=== PATIENT | male | born 1980 | race Caucasian/White ===

== ENCOUNTER → 2017-08-16 08:27 | Outpatient (CLI) | payer OTHER ==
[2017-08-16 09:03] LABS: UDS - AMPHET NEGATIVE QUAL (NEGATIVE); UDS - BARB NEGATIVE QUAL (NEGATIVE); UDS - BENZO NEGATIVE QUAL (NEGATIVE); UDS - COCAINE NEGATIVE QUAL (NEGATIVE); UDS - OPIATE NEGATIVE QUAL (NEGATIVE); UDS - PCP NEGATIVE QUAL (NEGATIVE); UDS - THC NEGATIVE QUAL (NEGATIVE)
== END | disposition home or self-care (01) ==
LOC: D.LAB 08:27
PROVIDERS: Emergency Medicine
DX: F11.20 Opioid dependence, uncomplicated (principal)

== ENCOUNTER → 2017-10-23 08:56 | Outpatient (CLI) | payer OTHER ==
[2017-10-23 09:26] LABS: UDS - AMPHET NEGATIVE QUAL (NEGATIVE); UDS - BARB NEGATIVE QUAL (NEGATIVE); UDS - BENZO NEGATIVE QUAL (NEGATIVE); UDS - COCAINE NEGATIVE QUAL (NEGATIVE); UDS - OPIATE NEGATIVE QUAL (NEGATIVE); UDS - PCP NEGATIVE QUAL (NEGATIVE); UDS - THC NEGATIVE QUAL (NEGATIVE)
== END | disposition home or self-care (01) ==
LOC: D.LAB 08:56
PROVIDERS: Emergency Medicine
DX: F11.20 Opioid dependence, uncomplicated (principal)

== ENCOUNTER 2018-04-20 18:54 | Emergency (ER) | payer OTHER ==
[~2018-04-20] VITALS: Ht 175.3 cm; Wt 79.5 kg
[2018-04-20 18:59] VITALS: Ht 175.3 cm; Wt 79.5 kg
[2018-04-20] MEDS ORDERED: ZOFRAN8 MG PO (20:46)
[2018-04-20] MEDS ORDERED: BUTALB-APAP-CA1 EACH PO (20:46)
[2018-04-20 21:10] VITALS: BP 150/99
== END 2018-04-20 21:22 | disposition home or self-care (01) ==
LOC: D.ER 18:54
DX: R51 Headache (principal); F17.200 Nicotine dependence, unspecified, uncomplicated

== ENCOUNTER 2018-04-25 02:09 | Emergency (ER) | payer OTHER ==
[~2018-04-25] VITALS: Ht 175.3 cm; Wt 75.0 kg
[~2018-04-25 02:09] MED LIST: BUTALB-APAP-CA1 EACH PO; ZOFRAN8 MG PO
[2018-04-25 02:18] VITALS: Ht 175.3 cm; Wt 75.0 kg
[2018-04-25] MEDS ORDERED: BUTALB-APAP-CA1 EACH PO (05:02)
[2018-04-25] MEDS ORDERED: ZOFRAN ODT4 MG/UDTAB PO ×2 (05:05)
[2018-04-25 05:34] VITALS: BP 130/72
== END 2018-04-25 05:35 | disposition home or self-care (01) ==
LOC: D.ER 02:09
DX: R51 Headache (principal); F17.200 Nicotine dependence, unspecified, uncomplicated

== ENCOUNTER 2018-05-18 19:55 | Emergency (ER) | payer OTHER ==
[~2018-05-18] VITALS: Ht 175.3 cm; Wt 79.4 kg
[~2018-05-18 19:55] MED LIST changes: +ZOFRAN ODT4 MG/UDTAB PO
[2018-05-18 20:02] VITALS: Ht 175.3 cm; Wt 79.4 kg
[2018-05-18] MEDS ORDERED: COMPAZINE10 MG PO (23:31)
[2018-05-18] MEDS ORDERED: TYLENOL W/CODEI1 TAB PO (23:31)
[2018-05-18 23:58] VITALS: BP 132/85
== END 2018-05-18 23:58 | disposition home or self-care (01) ==
LOC: D.ER 19:55
DX: G43.909 Migraine, unspecified, not intractable, without status migrainosus (principal); F17.200 Nicotine dependence, unspecified, uncomplicated

== ENCOUNTER 2018-06-28 06:55 | Emergency (ER) | payer OTHER ==
[~2018-06-28] VITALS: Ht 175.3 cm; Wt 81.8 kg
[~2018-06-28 06:55] MED LIST changes: +COMPAZINE10 MG PO; +TYLENOL W/CODEI1 TAB PO
[2018-06-28 07:00] VITALS: BP 128/81; Ht 175.3 cm; Wt 81.8 kg
[2018-06-28] MEDS ORDERED: FIORICET-COD 51 EACH PO (07:15)
[2018-06-28] MEDS ORDERED: IMITREX NS (07:15)
== END 2018-06-28 07:33 | disposition home or self-care (01) ==
LOC: D.ER 06:55
DX: R51 Headache (principal)

== ENCOUNTER → 2020-06-02 12:30 | Outpatient (CLI) | payer OTHER ==
[2018-06-28 07:00] VITALS: BMI 26.6
[~2020-06-02 12:30] MED LIST changes: +FIORICET-COD 51 EACH PO; +IMITREX NS
== END | disposition home or self-care (01) ==
LOC: D.US 10:30
PROVIDERS: ATTEND Surgery
DX: R10.31 Right lower quadrant pain (principal)

== ENCOUNTER 2020-06-10 08:30 | Day surgery (SDC) | payer OTHER ==
[2020-06-09 15:30] LABS: BASOPHILS 0.4 % (0-2); EOSINOPHILS 6.1 % (0-7); HEMATOCRIT 48.5 % (42.0-54.0); HEMOGLOBIN 16.4 g/dL (13.5-17.5); IMMATURE GRANULOCYTES 0.4 % (0-5); LYMPHOCYTES 31.5 % (15-50); MCH 32.8 pg (26.0-34.0); MCHC 33.8 g/dL (31.0-37.0); MEAN PLATELET VOLUME 9.1 fL (7.4-10.4); MONOCYTES 8.4 % (2-11); NEUTROPHILS 53.2 % (40-80); PLATELET COUNT 223 10x3/uL (130-400); RDW 12.4 % (11.5-14.5); WBC 9.3 10x3/uL (4.8-10.8)
[2020-06-09 15:54] LABS: ANION GAP 7.8 mmol/L (8-16); CALCIUM 9.8 mg/dL (8.5-10.1); CARBON DIOXIDE 31.2 mmol/L (21.0-32.0); CREATININE - SERUM 1.3 mg/dL (0.6-1.3)
[~2020-06-10] VITALS: Ht 175.3 cm; Wt 81.2 kg
--- NOTE | ~2020-06-10 | OP ---
PATIENT NAME: MINA QUINONES MEDICAL RECORD: [id number] :84 LOCATION:D.OPS ADMISSION DATE: SURGEON: TAPAN HOOKS MD DATE OF OPERATION: 06/10/2020 PREOPERATIVE DIAGNOSES: 1. Right inguinal hernia. 2. Hyperlipidemia. 3. Bipolar disorder. 4. Tobacco dependence syndrome. POSTOPERATIVE DIAGNOSES: 1. Right inguinal hernia. 2. Hyperlipidemia. 3. Bipolar disorder. 4. Tobacco dependence syndrome. PROCEDURE: Right inguinal hernia repair with medium PHS mesh. SURGEON: Tapan Hooks MD REPORT OF PROCEDURE: The patient's right groin was prepped and draped in sterile fashion. An oblique incision was made above the inguinal ligament. Electrocautery was used to dissect through the subcutaneous tissue down to the external oblique fascia. This fascia was opened up to the external ring using electrocautery. We elevated the spermatic cord and a Brian was placed around it. The patient had a small cord lipoma and this was high ligated with 3-0 silk tie. We see there was some laxity to the floor of the inguinal canal consistent with an early direct hernia defect. We opened up this inguinal floor and opened the preperitoneal space of Retzius in all directions. A medium PHS mesh was inserted and sutured down on all sides using multiple interrupted 0 Vicryls. The wound was then irrigated out with normal saline, inspected the area and never saw any evidence of an ilioinguinal nerve. The external oblique fascia was then closed with running 2-0 Vicryl, Ayad's was closed with interrupted 3-0 Vicryl and the skin was closed with running subcutaneous 5-0 Monocryl. A 10 mL of 0.25% Marcaine with epinephrine was infused into the surrounding tissues and the wound was dressed appropriately. COMPLICATIONS: None. CONDITION: Stable. ANESTHESIA: General endotracheal and local. BLOOD LOSS: Minimal. TRANSINT:[id number] Voice Confirmation ID: [id number] DOCUMENT ID: [id number] OPERATIVE REPORT [id number] MINA QUINONES CHRISTIAN MD CC: MARIAM CARLIN DO [id number] DICTATION DATE: 06/10/20 1201 PROCESS EQUIPMENT OPERATOR: 06/10/201930 [facility] 06/10/20 [id number] [place] [address]
[~2020-06-10 08:30] MED LIST changes: +REMERON15 MG PO; +SEROQUEL100 MG PO; +XANAX1 MG PO
[2020-06-10 10:44] VITALS: BP 115/70; Ht 175.3 cm; Wt 81.2 kg
[2020-06-10] MEDS ORDERED: HYDROCODON-ACE1 EA10 PO (11:58)
--- NOTE | 2020-06-10 17:38 | NUR ---
1650 UP TO BR WITHOUT DIFFICULTY TO VOID VLEAR PHILIP URINE. STATES PAIN IS A 5/10 AND HE WOULD LIKE TO GO HOME. IV D/C'D WITH CANNULA INTACT, PRESSURE HELD, AND DRSG PLACED. DISCHARGE INSTRUCTIONS GIVEN AND PT AND VERBALIZED AN UNDERSTANDING.
== END 2020-06-10 15:05 | disposition home or self-care (01) ==
LOC: D.OPS 08:30 → D.PAN 10:00 → D.OPS 10:00
PROVIDERS: ATTEND Surgery
DX: K40.90 Unilateral inguinal hernia, without obstruction or gangrene, not specified as recurrent (principal); E78.5 Hyperlipidemia, unspecified; F31.9 Bipolar disorder, unspecified; F17.200 Nicotine dependence, unspecified, uncomplicated; N41.9 Inflammatory disease of prostate, unspecified; R10.2 Pelvic and perineal pain